=== PATIENT | male | born 1940 | race Caucasian/White ===

== ENCOUNTER → 2017-03-02 | Outpatient (CLI) | payer MEDICARE, OTHER ==
[~2017-03-02] MED LIST: ALLO100T PO; AMLO5TAB2 PO; CHOL20005 PO; COZA100T PO; CYAN1TAB24 PO; ENAL10TA7 PO; LORT5TAB PO; LOSA50TA PO; OMEP40CA2 PO; ROSU10 PO; ROSU5 PO; SITA50 PO; TRAM50TA PO; VITA10002 PO; VITA400C28 PO
[2017-03-02 11:02] LABS: INTERNATIONAL NORMALIZED RATIO 0.9 RATIO
[2017-03-02 11:18] LABS: BLOOD, URINE NEG (NEG); COMMENT (UR) CULT NOT INDICATED; CULTURE IF INDICATED CULT NOT INDICATED; GLUCOSE,URINE NEG (NEG); KETONE, URINE NEG (NEG); MUCUS URINE FEW /lpf (OCC); NITRITE,URINE NEG (NEG); PH, URINE 5.5 (5.0-8.5); URINE COLOR YELLOW (YELLW/STRAW)
[2017-03-02 11:18] LABS: BICARBONATE 25.3 MEQ/L (21.0-32.0); POTASSIUM 4.7 MEQ/L (3.5-5.1)
--- NOTE | 2017-03-02 11:43 | RADRPT ---
EXAM DATE/TIME: 03/02/2017 11:08 [place] COMPARISON: No previous studies available for comparison. INDICATIONS : Evaluate for pneumonia, pneumothorax or communicable disease. Pre op for left knee arthroscopy. MEDICAL HISTORY : Hypertension. SURGICAL HISTORY : Tonsillectomy. ENCOUNTER: Initial ACUITY: 1 day PAIN SCORE: 0/10 LOCATION: chest FINDINGS: PA and lateral views of the chest demonstrate the lungs to be symmetrically aerated without evidence of mass, infiltrate or effusion. Calcified granulomas in the upper lobes. The cardiomediastinal conto urs are unremarkable. Osseous structures are intact. CONCLUSION: No acute disease. Antonio Savage MD on March 02, 2017 at 11:41 Board Certified Radiologist. This report was verified electronically.
--- NOTE | 2017-03-03 20:09 | EKG ---
Date Performed: 03/02/2017 Time Performed: 10:18:09 PTAGE: 76 years EKG: SINUS BRADYCARDIA BORDERLINE ECG NO PREVIOUS TRACING DOCTOR: Santana Winters Interpretating Date/Time 03/03/2017 20:08:01
== END ==
LOC: CPRE 09:27
PROVIDERS: ATTEND Orthopaedic Surgery
DX: Z01.810 Encounter for preprocedural cardiovascular examination (principal); Z01.811 Encounter for preprocedural respiratory examination; Z01.812 Encounter for preprocedural laboratory examination; S83.242A Other tear of medial meniscus, current injury, left knee, initial encounter; R94.31 Abnormal electrocardiogram [ECG] [EKG]; X58.XXXA Exposure to other specified factors, initial encounter
CPT/HCPCS: 36415; 71020; 80048; 81001; 85610; 93005

== ENCOUNTER → 2017-03-13 | Day surgery (SDC) | payer MEDICARE, OTHER ==
--- NOTE | 2017-03-06 08:27 | MH ---
cc: WENDY ELLIOTT DATE OF ADMISSION: 03/13/2017 ADMISSION DIAGNOSIS Large radial tear medial meniscus left knee with extruded body segment, tricompartmental chondromalacia left knee, effusion left knee, synovitis left knee, popliteal cyst left knee, pain left knee. HISTORY OF PRESENT ILLNESS The patient is a 76-year-old white male who has experienced pain of his left knee of almost 3 months duration. 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 He remained ambulatory thereafter with generalized soreness localized to the medial aspect of his left knee for which he tried to continue with a routine walking exercise program. He was taking Tylenol for pain relief as well as tramadol that he had available at home for history of chronic low back pain. His symptoms persisted and he later underwent medical evaluation with his primary care physician Dr. Tang. An MRI scan was completed, the results of which identified a large radial tear of the medial meniscus with an extruded body segment associated with tricompartmental chondral changes and a small effusion with moderate synovitis and a small popliteal cyst. The patient was later seen by the undersigned physician and at that time described ongoing soreness generalized about the medial aspect of his left knee that was interfering with all ambulatory activities as well as his ability to sleep comfortably through the night. His clinical evaluation was consistent with an internal derangement of his left knee for which findings and treatment options were reviewed. The pros and cons of continuing with conservative management versus operative intervention that would involve arthroscopic surgery were outlined. Given the nature of his ongoing pain and his lack of improvement that was interfering with his daily routine the patient did express his desire to proceed with arthroscopic surgery as discussed. In compliance with his wishes he is currently being admitted in order that the above be accomplished. PAST MEDICAL HISTORY/HOSPITALIZATIONS/SURGERIES Have included: 1. Tonsillectomy and adenoidectomy. 2. Coronary angiogram for routine medical evaluation. 3. Right shoulder procedure for history of frozen shoulder syndrome. 4. Hemorrhoidectomy. 5. Prostate biopsy with benign findings but procedure complicated by postoperative infection. 6. Right inguinal herniorrhaphy. 7. Open reduction, internal fixation of a displaced distal right radius fracture. 8. Bilateral cataract surgery. 9. Colonoscopy. 10. Medical treatment for infection of the throat area. MEDICAL ILLNESSES 1. Gout. 2. Hypertension. 3. Elevated cholesterol. 4. Borderline diabetes. 5. Acid reflux. 6. History of chronic low back pain. MEDICATIONS Current medications: 1. Allopurinol 100 mg daily. 2. Amlodipine 5 mg twice daily. 3. Losartan 50 mg daily. 4. Crestor 5 mg at bedtime. 5. Januvia 50 mg daily. The patient not conforming to any particular dietary restrictions. 6. Omeprazole 40 mg daily. 7. Tramadol 50 mg p.r.n. 8. Vitamin D3 2000 international units daily. 9. B12 1000 international units twice weekly. ALLERGIES The patient denies any known drug allergies. REVIEW OF SYSTEMS He wears glasses. Has had occasional headaches. No seizure or syncope. No sinus congestion or epistaxis. Diminished auditory acuity. No tinnitus. No bleeding gums or dysphagia. Denies cough, shortness of breath, pneumonia or tuberculosis. He has had a history of pleurisy. No angina. He is medically managed for hypertension. His appetite is good. Bowel movements are regular. No hepatitis, gallbladder disease, ulcers. There is a positive history of hemorrhoids. Urinary tract infection following prostate biopsy. No kidney stones. Fracture of the right wrist as described and psychiatric counseling following a divorce. The remaining review of systems is unremarkable and noncontributory. FAMILY HISTORY 24 years. Two daughters described as being in good health. Family history is positive for hypertension, diabetes and cancer of the throat. SOCIAL HISTORY The patient completed a college education. 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 He denies active use of tobacco since 1980. Ethanol consumption socially. PHYSICAL EXAMINATION GENERAL: Height 5 feet 11 inches, weight 191 pounds. An alert, oriented and responsive 76-year-old white male who sits quietly upon the examination table with no obvious distress. HEENT: Pupils are equally round and reactive to light. Extraocular movements full. Sclerae are clear. External nares clear. External auditory canals clear. Dental intact. Mucous membranes pink and moist. Pharynx clear. NECK: Neck is supple. Active range of motion without significant pain. Carotid pulse palpable bilaterally. Trachea midline. Thyroid without enlargement. LUNGS: Clear to auscultation and percussion. No CVA tenderness. No discomfort throughout the dorsal lumbar spine. HEART: Grade 2/6 systolic murmur heard best at the left intercostal space. ABDOMEN: Abdomen is soft, nontender. Bowel sounds present. RECTAL: Per primary care physician. EXTREMITIES: Left knee, there is tenderness along the medial joint line without palpable deformity. Apprehension and compression sign negative with slight limitation at the extreme of flexion maneuvering but no associated crepitation or instability. No collateral ligamentous laxity. Al test and drawer sign negative. Pivot shift and Niels sign minimally positive for medial compartment pain. Straight-leg raising unremarkable at 80 degrees. Satisfactory mobility of the left hip with no associated pain. Independent gait. NEUROLOGIC: Cranial nerves II-XII grossly intact. IMPRESSION Large radial tear medial meniscus left knee with extruded body segment, tricompartmental chondromalacia left knee, effusion left knee, synovitis left knee, popliteal cyst left knee, pain left knee. PLAN Arthroscopic surgery, possible arthrotomy left knee. The nature of the planned surgical procedure, the potential complications and risks associated, the expectations of surgery and the consent form were thoroughly reviewed with the patient prior to his admission to the hospital. John has indicated his full understanding regarding all of the above and given consent to proceed with treatment as outlined. Medical evaluation and clearance for surgery will be completed by his primary care physician Dr. Vilma Grace. MD BUCKY Iglesias/TLL /3:35 PM /8:17 AM
[~2017-03-13] VITALS: Ht 179.3 cm; Wt 87.1 kg
[~2017-03-13] MED LIST changes: +*ONDANSETRON 4 MG VIAL PERIprocedural Use ONLY ONE; +*PROMETHAZINE 25 MG/ML VIAL PERIprocedural use ONLY ONE; +*diphenhydrAMINE HCL 50 MG/ML VIAL PERIprocedural Use ONLY ONE; +*morphine SULFATE 8 MG/ML PERIprocedure ONLY ONE; +ACETAMINOPHEN 1000 MG/100 ML 100 ML IV ONE; +ACETAMINOPHEN/HYDROcodone 325 MG/5 MG TAB PO PRN; +CHLORHEXIDINE GLUCONATE 2 % 1 PACK (2 CLOTHS) TOPICAL PRN; -COZA100T PO; +DEXAMETHASONE SOD PHOS 4 MG/ML VIAL IV ONE; +DO NOT ADM ANY ANTICOAGULANT DRUGS PRN; -ENAL10TA7 PO; +ESMOLOL HCL 100 MG/10 ML VIAL IV ONE; +FAMOTIDINE 20 MG/2 ML VIAL ONE; +GLYCOPYRROLATE 1 MG/5 ML SYRINGE IV PUSH ONE; +HYDR-3516 PO; +INSULIN HUMAN REGULAR 1,000 UNITS/10 ML VIAL SQ PRN; +KETOROLAC TROMETHAMINE 30 MG/ML (IVP) VIAL IV PUSH ONE; +LACTATED RINGER'S 1000 ML IV PRN; +LIDOCAINE HCL 1% PF 5 ML AMPULE OTHER ONE; +LIDOCAINE HCL 2% 50 ML VIAL ONE; -LORT5TAB PO; +METOPROLOL TARTRATE 25 MG TAB PO PRN; +MIDAZOLAM HCL 2 MG/2 ML VIAL IV ONE; +MORPHINE SULFATE 8 MG/ML INJ IM PRN; +ONDANSETRON HCL 4 MG/2 ML VIAL IV PUSH ONE; +POVIDONE IODINE 5% (ANTISEPSIS KIT) 4 APPLICATIONS EACH NARE PRN; +POVIDONE IODINE 7.5% SCRUB 118 ML BOTTLE TOPICAL SCH; +PROMETHAZINE INJ 25 MG/ML VIAL IM PRN; +PROPOFOL 200 MG/20 ML AMP IV ONE; -ROSU10 PO; +SODIUM CHLORID 0.9% 500 ML IV PRN; +TAMS5CAP PO; +TRIAMCINOLONE ACETONIDE 40 MG/ML VIAL ONE; -VITA10002 PO; -VITA400C28 PO
[2017-03-13] MEDS: ceFAZolin 2 GM PREMIX 50 ML IV SCH ×2 (08:43→09:32)
[2017-03-13 13:15] VITALS: BP 155/78; PULSE 58; RESP 20; TEMP 97.8; O2SAT 96
--- NOTE | 2017-03-16 11:33 | MP ---
cc: WENDY INGRAM DATE OF SURGERY 03/13/17 PREOPERATIVE DIAGNOSIS 1. Large radial tear medial meniscus left knee with extruded body segment 2. Tricompartmental chondromalacia effusion, 3. Synovitis, 4. Popliteal cyst 5. Pain of the left knee. POSTOPERATIVE DIAGNOSIS 1. Large radial tear medial meniscus left knee with extruded body segment 2. Tricompartmental chondromalacia effusion, 3. Synovitis, 4. Popliteal cyst 5. Pain of the left knee. 6. Lateral meniscus tear of the left knee PROCEDURE Partial medial and lateral meniscectomy of the left knee with chondroplasty of the patellofemoral joint. SURGEON Earl Ingram MD ANESTHESIA General by LMA FORMAT Following induction of satisfactory general anesthesia by LMA insertion as completed per the Department of Anesthesia, examination of the left knee revealed a satisfactory range of motion with no appreciable ligamentous instability. The extremity proper was positioned in the printing bindery assistant knee slaughter, prepped with Betadine solution and draped into a sterile field in the routine manner. Prior to initiation of the actual procedure, the standard time-out protocol was completed. All parameters were appropriately addressed and confirmed by operating room personnel. Arthroscopic instrumentation was introduced through stab wound utilizing cannula with sharp and blunt trocar. The inflow irrigation by way of a medial suprapatellar portal, the arthroscope through a lateral parapatellar portal, a probe through a medial parapatellar portal. Examination of the suprapatellar pouch revealed a mild degree of reactive synovitis, cartilaginous irregularity along the articular surface of the patellofemoral joint was appreciated consistent with localized chondromalacia. Within the medial compartment, a prominent degenerative tear involving the posterior horn of the medial meniscus was readily identified. There were adjacent articular changes especially involving the femoral condyle. There was some degree of attenuation and fraying of the anterior cruciate ligament within the intercondylar region. Within the lateral compartment, a degenerative type tear involving the anterior horn of the lateral meniscus was noted. Attention was redirected to the medial compartment. Utilizing a 3.8 mm Saber resector, a partial medial meniscectomy was accomplished as well as localized debridement along the articular surface of the femoral condyle. Additional debridement was completed throughout the intercondylar region in a limited fashion and thereafter the tear involving the anterior horn of the lateral meniscus was resected and the remaining portion of the lateral meniscus was contoured with the shaver. The instrument was thereafter oriented into the patellofemoral articulation where a generalized chondroplasty of the patellofemoral joint was accomplished. The joint space was thoroughly lavaged and suctioned dry, ad intra-articular Kenalog lidocaine injection was completed. Portal sites were reapproximated with Steri-Strips over which Xeroform gauze and a bulky dry sterile dressing were placed. Anesthesia was discontinued. The patient thus transferred to a hospital stretcher and returned to the recovery room in satisfactory condition having tolerated his operative procedure well. Estimated blood loss was less than 10 mL. MD BUCKY Iglesias/ /10:12 AM /11:24 AM
== END | disposition home or self-care (01) ==
LOC: HSDC 05:34
PROVIDERS: ATTEND Orthopaedic Surgery
DX: S83.282A Other tear of lateral meniscus, current injury, left knee, initial encounter (principal); S83.242A Other tear of medial meniscus, current injury, left knee, initial encounter; M94.262 Chondromalacia, left knee; M65.9 Synovitis and tenosynovitis, unspecified; M10.9 Gout, unspecified; I10 Essential (primary) hypertension; M54.5 Low back pain; G89.29 Other chronic pain; K21.9 Gastro-esophageal reflux disease without esophagitis; E78.00 Pure hypercholesterolemia, unspecified
CPT/HCPCS: 01400; 29880; J0131; J0690; J1100; J1200; J1885; J2250; J2270; J2405; J2550; J3010; J3301; J7120

== ENCOUNTER 2017-03-17 04:37 | Emergency (ER) | payer MEDICARE, OTHER ==
[~2017-03-17] VITALS: Ht 177.8 cm; Wt 86.0 kg
[~2017-03-17 04:37] MED LIST changes: -*ONDANSETRON 4 MG VIAL PERIprocedural Use ONLY ONE; -*PROMETHAZINE 25 MG/ML VIAL PERIprocedural use ONLY ONE; -*diphenhydrAMINE HCL 50 MG/ML VIAL PERIprocedural Use ONLY ONE; -*morphine SULFATE 8 MG/ML PERIprocedure ONLY ONE; -ACETAMINOPHEN 1000 MG/100 ML 100 ML IV ONE; -ACETAMINOPHEN/HYDROcodone 325 MG/5 MG TAB PO PRN; -CHLORHEXIDINE GLUCONATE 2 % 1 PACK (2 CLOTHS) TOPICAL PRN; -CHOL20005 PO; +D200CAP PO; -DEXAMETHASONE SOD PHOS 4 MG/ML VIAL IV ONE; -DO NOT ADM ANY ANTICOAGULANT DRUGS PRN; -ESMOLOL HCL 100 MG/10 ML VIAL IV ONE; -FAMOTIDINE 20 MG/2 ML VIAL ONE; -GLYCOPYRROLATE 1 MG/5 ML SYRINGE IV PUSH ONE; -INSULIN HUMAN REGULAR 1,000 UNITS/10 ML VIAL SQ PRN; -KETOROLAC TROMETHAMINE 30 MG/ML (IVP) VIAL IV PUSH ONE; -LACTATED RINGER'S 1000 ML IV PRN; -LIDOCAINE HCL 1% PF 5 ML AMPULE OTHER ONE; -LIDOCAINE HCL 2% 50 ML VIAL ONE; -METOPROLOL TARTRATE 25 MG TAB PO PRN; -MIDAZOLAM HCL 2 MG/2 ML VIAL IV ONE; -MORPHINE SULFATE 8 MG/ML INJ IM PRN; -ONDANSETRON HCL 4 MG/2 ML VIAL IV PUSH ONE; -POVIDONE IODINE 5% (ANTISEPSIS KIT) 4 APPLICATIONS EACH NARE PRN; -POVIDONE IODINE 7.5% SCRUB 118 ML BOTTLE TOPICAL SCH; -PROMETHAZINE INJ 25 MG/ML VIAL IM PRN; -PROPOFOL 200 MG/20 ML AMP IV ONE; -SODIUM CHLORID 0.9% 500 ML IV PRN; -TAMS5CAP PO; -TRIAMCINOLONE ACETONIDE 40 MG/ML VIAL ONE
[2017-03-17 04:39] VITALS: BP 188/108; PULSE 112; RESP 20; TEMP 98.1; O2SAT 97
--- NOTE | 2017-03-17 04:59 | PD ---
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 opioids were from recent L knee surgery. last urination was 10 hours prior. occasional dribbling throughout most of the day reported. no fever/chills. no n/ v. no follow up with urology. no flomax. PFSH Past Medical History Cancer: No Diabetes: Yes Patient Takes Glucophage: Yes Endocrine: Yes Gastrointestinal Disorders: Yes (acid reflux) Genitourinary: No Hepatitis: No Hiatal Hernia: No Hypertension: Yes Immune Disorder: No Medical other: Yes (GOUT) Musculoskeletal: Yes (arthritis, chronic lower back pain, LEFT KNEE PAIN) Neurologic: No Psychiatric: No Reproductive: No Respiratory: No Thyroid Disease: No Past Surgical History Abdominal Surgery: Yes (right inguinal hernia repair) AICD: No Body Medical Devices: titanium plate in right forearm Cardiac Surgery: Yes (ANGIOGRAM) Ear Surgery: No Endocrine Surgery: No Eye Surgery: Yes (BILAT CATARACTS REMOVED) Genitourinary Surgery: Yes (PROSTATE BX) Gynecologic Surgery: No Joint Replacement: No Oral Surgery: Yes (T & A) Pacemaker: No Thoracic Surgery: No Tonsillectomy: Yes Other Surgery: Yes (LEFT KNEE) Social History Alcohol Use: Yes Tobacco Use: No Substance Use: No Allergies-Medications (Allergen,Severity, Reaction): Coded Allergies: No Known Allergies (Unverified Adverse Reaction, Unknown, 03/17/17) Reported Meds & Prescriptions Reported Meds & Active Scripts Active Flomax (Tamsulosin HCl) 0.4 Mg Cap 0.4 Mg PO HS Reported Hydrocodone-Acetaminophen 5-325 mg Tab 1 Tab PO Q6H PRN B12 (Cyanocobalamin) 1,000 Mcg Tab 1,000 Mg PO DAILY D3 Super Strength (Cholecalciferol) 2,000 Unit Cap 2,000 Units PO DAILY Tramadol (Tramadol HCl) 50 Mg Tab 50 Mg PO DAILY PRN Omeprazole 40 Mg Cap 40 Mg PO DAILY Januvia (Sitagliptin Phosphate) 50 Mg Tab 50 Mg PO DAILY Crestor (Rosuvastatin Calcium) 5 Mg Tab 5 Mg PO HS Losartan (Losartan Potassium) 50 Mg Tab 50 Mg PO DAILY Amlodipine (Amlodipine Besylate) 5 Mg Tab 5 Mg PO DAILY Allopurinol 100 Mg Tab 100 Mg PO DAILY Review of Systems Except as stated in HPI: all other systems reviewed are Neg Physical Exam Narrative GENERAL: 76 yo M, WNWD, NAD SKIN: Warm and dry. HEAD: Atraumatic. Normocephalic. EYES: Pupils equal and round. No scleral icterus. No injection or drainage. ENT: No nasal bleeding or discharge. Mucous membranes pink and moist. NECK: Trachea midline. No JVD. CARDIOVASCULAR: Regular rate and rhythm. RESPIRATORY: No accessory muscle use. Clear to auscultation. Breath sounds equal bilaterally. GASTROINTESTINAL: Distension. TTP lower abdomen c/w urine retention. MUSCULOSKELETAL: Extremities without clubbing, cyanosis, or edema. No obvious deformities. NEUROLOGICAL: Awake and alert. No obvious cranial nerve deficits. Motor grossly within normal limits. Five out of 5 muscle strength in the arms and legs. Normal speech. PSYCHIATRIC: Appropriate mood and affect; insight and judgment normal. Data Data Last Documented VS Vital Signs Date Time Temp Pulse Resp B/P (MAP) Pulse Ox O2 Delivery O2 Flow Rate FiO2 03/17/17 04:39 98.1 112 20 188/108 (134) 97 Room Air VS reviewed Orders Orders Urinary Catheter Insert/Apply (03/17/17 04:57) Ed Discharge Order (03/17/17 05:00) [facility] Medical Decision Making Medical Screen Exam Complete: Yes Emergency Medical Condition: Yes Medical Record Reviewed: Yes Differential Diagnosis urinary retention, BPH, UTI Narrative Course Hdez placed 800 cc clear yellow collected Flomax script f/u urology Diagnosis Primary Impression: Retention of urine Referrals: Kenan Hairston DO 2 days Med/Other Pt SpecificInfo: Prescription(s) given Scripts Tamsulosin (Flomax) 0.4 Mg Cap 0.4 MG PO HS for Manage Prostate Problems, #15 CAP 0 Refills Prov: Paco Veronica MD 03/17/17 Disposition: 01 DISCHARGE HOME Condition: Stable Paco Veronica MD Mar 17, 2017 04:59
[2017-03-17] MEDS ORDERED: TAMS5CAP PO (05:00)
== END 2017-03-17 05:51 | disposition home or self-care (01) ==
LOC: NEPE 04:37
DX: R33.0 Drug induced retention of urine (principal); E11.8 Type 2 diabetes mellitus with unspecified complications; I10 Essential (primary) hypertension; M46.96 Unspecified inflammatory spondylopathy, lumbar region; Z79.84 Long term (current) use of oral hypoglycemic drugs
CPT/HCPCS: 51702

== ENCOUNTER 2017-03-20 19:13 | Emergency (ER) | payer MEDICARE, OTHER ==
[~2017-03-20] VITALS: Ht 177.8 cm; Wt 88.0 kg
[~2017-03-20 19:13] MED LIST changes: +TAMS5CAP PO
[2017-03-20 19:17] VITALS: BP 138/98; PULSE 69; RESP 15; TEMP 98.1; O2SAT 98
--- NOTE | 2017-03-20 22:22 | PD ---
HPI Chief Complaint: Complaint Time Seen by Provider: 22:02 Travel History International Travel<30 days: No Contact w/Intl Traveler<30days: No Traveled to known affect area: No History of Present Illness HPI 76 showed male presents to the emergency department stating is unable to drain his catheter that was placed today by his urologist, Dr. Rachel. Patient's had issues with urinary retention since having knee surgery recently. He states that he saw his urologist today who took out his catheter, but had to replace after he was unable to urinate. He has a Ruiz catheter, that he drains by unplugging it, no bag. Patient states that he drained it around 3 PM and then has been unable to get any urine from it. Patient denies any fevers or chills. No chest pressures breath. No abdominal pain. No nausea, vomiting, diarrhea. Patient was just recently placed in a new urinary retention medication, but cannot recall the name of it. Patient is requesting a new catheter to be placed. Severity is mild to moderate. No exacerbating or relieving factors. PFSH Past Medical History Cancer: No Cardiovascular Problems: Yes (HTN, MURMUR) Diabetes: Yes Patient Takes Glucophage: No Endocrine: Yes Gastrointestinal Disorders: Yes (acid reflux) Genitourinary: No Hepatitis: No Hiatal Hernia: No Hypertension: Yes Immune Disorder: No Medical other: Yes (GOUT) Musculoskeletal: Yes (arthritis, chronic lower back pain, LEFT KNEE PAIN) Neurologic: No Psychiatric: No Reproductive: No Respiratory: No Thyroid Disease: No Past Surgical History Abdominal Surgery: Yes (right inguinal hernia repair) AICD: No Body Medical Devices: titanium plate in right forearm Cardiac Surgery: Yes (ANGIOGRAM) Ear Surgery: No Endocrine Surgery: No Eye Surgery: Yes (BILAT CATARACTS REMOVED) Genitourinary Surgery: Yes (PROSTATE BX) Gynecologic Surgery: No Joint Replacement: No Oral Surgery: Yes (T & A) Pacemaker: No Thoracic Surgery: No Tonsillectomy: Yes Other Surgery: Yes (LEFT KNEE) Social History Alcohol Use: Yes (2 DRINKS PER DAY) Tobacco Use: No (QUIT 1981 3 PP/D) Substance Use: No Allergies-Medications (Allergen,Severity, Reaction): Coded Allergies: No Known Allergies (Unverified Adverse Reaction, Unknown, 03/20/17) Reported Meds & Prescriptions Reported Meds & Active Scripts Active Reported B12 (Cyanocobalamin) 1,000 Mcg Tab 1,000 Mg PO DAILY D3 Super Strength (Cholecalciferol) 2,000 Unit Cap 2,000 Units PO DAILY Tramadol (Tramadol HCl) 50 Mg Tab 50 Mg PO DAILY PRN Omeprazole 40 Mg Cap 40 Mg PO DAILY Januvia (Sitagliptin Phosphate) 50 Mg Tab 50 Mg PO DAILY Crestor (Rosuvastatin Calcium) 5 Mg Tab 5 Mg PO HS Losartan (Losartan Potassium) 50 Mg Tab 50 Mg PO DAILY Amlodipine (Amlodipine Besylate) 5 Mg Tab 5 Mg PO DAILY Allopurinol 100 Mg Tab 100 Mg PO DAILY Review of Systems Except as stated in HPI: all other systems reviewed are Neg Physical Exam Narrative GENERAL: Well-nourished, well-developed male patient, ambulatory. Afebrile. SKIN: Focused skin assessment warm/dry. HEAD: Normocephalic. Atraumatic. EYES: No scleral icterus. No injection or drainage. NECK: Supple, trachea midline. No JVD or lymphadenopathy. CARDIOVASCULAR: Regular rate and rhythm without murmurs, gallops, or rubs. RESPIRATORY: Breath sounds equal bilaterally. No accessory muscle use. Lungs sounds are clear to auscultation. GASTROINTESTINAL: Abdomen soft, non-tender, nondistended. MUSCULOSKELETAL: No cyanosis, or edema. BACK: Nontender without obvious deformity. No CVA tenderness. Data Data Last Documented VS Vital Signs Date Time Temp Pulse Resp B/P (MAP) Pulse Ox O2 Delivery O2 Flow Rate FiO2 03/20/17 19:17 98.1 69 15 138/98 (111) 98 Room Air Orders Orders Replace Ruiz (03/20/17 22:11) Basic Metabolic Panel (Bmp) (03/20/17 22:11) Urinalysis - C+S If Indicated (03/20/17 22:11) [facility] Medical Decision Making Medical Screen Exam Complete: Yes Emergency Medical Condition: Yes Medical Record Reviewed: Yes Differential Diagnosis Ruiz catheter malfunction versus urinary retention versus UTI Narrative Course 76 year old male presents to the emergency department stating that he is unable to drain urine from his Ruiz catheter. I am able to drain approximately 300 mL extremity. He states that he would like a new catheter to be replaced as he does not want to have continuing issues. Ruiz catheter will be replaced. BMP and UA are ordered and pending. BMP and UA are pending. Dr. Giordano will follow up on results and disposition patient. Brittney Shaikh Mar 20, 2017 22:22
[2017-03-20 23:10] LABS: BACTERIA, URINE RARE /hpf; BLOOD, URINE MOD (NEG); COMMENT (UR) CATH-CULTURE IND; CULTURE IF INDICATED CATH CULTURE IND; GLUCOSE,URINE NEG (NEG); KETONE, URINE NEG (NEG); MUCUS URINE FEW /lpf (OCC); NITRITE,URINE NEG (NEG); URINE COLOR YELLOW (YELLW/STRAW)
[2017-03-20 23:25] LABS: BICARBONATE 21.8 MEQ/L (21.0-32.0); POTASSIUM 4.9 MEQ/L (3.5-5.1)
[2017-03-20] MEDS ORDERED: CIPR-9 PO (23:43)
--- NOTE | 2017-03-20 23:43 | PD ---
Physical Exam Date Seen by Provider: Mar 20, 2017 Time Seen by Provider: 23:30 Data Data Last Documented VS Vital Signs Date Time Temp Pulse Resp B/P (MAP) Pulse Ox O2 Delivery O2 Flow Rate FiO2 03/20/17 19:17 98.1 69 15 138/98 (111) 98 Room Air Orders Orders Replace Ruiz (03/20/17 22:11) Basic Metabolic Panel (Bmp) (03/20/17 22:11) Urinalysis - C+S If Indicated (03/20/17 22:11) Urine Culture (03/20/17 22:45) Ciprofloxacin (Cipro) (03/20/17 23:45) Labs Laboratory Tests Test 03/20/17 22:45 Urine Color YELLOW Urine Turbidity CLEAR Urine pH 5.0 Urine Specific [place] 1.009 Urine Protein NEG mg/dL Urine Glucose (UA) NEG mg/dL Urine Ketones NEG mg/dL Urine Occult Blood MOD Urine Nitrite NEG Urine Bilirubin NEG Urine Urobilinogen LESS THAN 2.0 MG/DL Urine Leukocyte Esterase MOD Urine RBC 20 /hpf Urine WBC 8 /hpf Urine Amorphous Sediment RARE Urine Bacteria RARE /hpf Urine Mucus FEW /lpf Microscopic Urinalysis Comment CATH-CULTURE IND Blood Urea Nitrogen 18 MG/DL Creatinine 1.83 MG/DL Random Glucose 85 MG/DL Calcium Level 8.4 MG/DL Sodium Level 136 MEQ/L Potassium Level 4.9 MEQ/L Chloride Level 106 MEQ/L Carbon Dioxide Level 21.8 MEQ/L Anion Gap 8 MEQ/L Estimat Glomerular Filtration Rate 36 ML/MIN [facility] Medical Record Reviewed: Yes Supervised Visit with SAMUEL: Yes Diagnosis Primary Impression: Urinary retention Additional Impressions: Renal insufficiency UTI (urinary tract infection) Referrals: Urologist 2 days Patient Instructions: General Instructions Med/Other Pt SpecificInfo: Prescription(s) given Scripts Ciprofloxacin (Cipro) 500 Mg Tab 500 MG PO BID for Infection for 3 Days, #6 TAB 0 Refills Prov: Elin Giordano MD 03/20/17 Disposition: 01 DISCHARGE HOME Condition: Stable Elin Giordano MD Mar 20, 2017 23:43
[2017-03-20] MEDS ORDERED: CIPROFLOXACIN 500 MG TAB PO ONE (23:45)
== END 2017-03-21 00:10 | disposition home or self-care (01) ==
LOC: NEPC 19:13
DX: N39.0 Urinary tract infection, site not specified (principal); N28.9 Disorder of kidney and ureter, unspecified; I10 Essential (primary) hypertension; R01.1 Cardiac murmur, unspecified; E11.9 Type 2 diabetes mellitus without complications; K21.9 Gastro-esophageal reflux disease without esophagitis; M10.9 Gout, unspecified; Z79.899 Other long term (current) drug therapy; Z87.891 Personal history of nicotine dependence
CPT/HCPCS: 51703; 80048; 81001; 87086